=== PATIENT | male | born 1995 | race Caucasian/White ===

== ENCOUNTER 2018-04-01 11:58 | Emergency (ER) | payer SELFPAY ==
[~2018-04-01] VITALS: Ht 175.3 cm; Wt 81.8 kg
[2018-04-01] MEDS ORDERED: PERTUSS(ACELL),DIPH,TET VAC/PF 0.5 ML VIAL IM ONE (12:45)
[2018-04-01] MEDS ORDERED: IBUPROFEN 800 MG TABLET PO ONE (12:45)
[2018-04-01 14:35] VITALS: BP 123/65
== END 2018-04-01 15:09 | disposition home or self-care (01) ==
LOC: EMS 12:00
DX: S61.411A Laceration without foreign body of right hand, initial encounter (principal); V00.131A Fall from skateboard, initial encounter; Y93.51 Activity, roller skating (inline) and skateboarding; Y92.89 Other specified places as the place of occurrence of the external cause; Y99.8 Other external cause status
CPT/HCPCS: 90471; 90715; 99284

== ENCOUNTER 2018-04-03 11:04 | Emergency (ER) | payer MEDICAID ==
[~2018-04-03] VITALS: Ht 175.3 cm; Wt 81.8 kg
[2018-04-03] MEDS ORDERED: BACITRACIN 0.9 GM PACKET OINTMENT TP ONE (12:00)
[2018-04-03] MEDS ORDERED: LIDOCAINE HCL 1% 10 ML VIAL INJ ONE (12:00)
[2018-04-03] MEDS ORDERED: IBUPROFEN 800 MG TABLET PO ONE (12:00)
[2018-04-03] MEDS ORDERED: CEPHALEXIN MONOHYDRATE 500 MG CAPSULE PO ONE (12:00)
[2018-04-03 13:52] VITALS: BP 119/62
== END 2018-04-03 13:55 | disposition home or self-care (01) ==
LOC: EMS 11:19
DX: S61.411A Laceration without foreign body of right hand, initial encounter (principal); X58.XXXA Exposure to other specified factors, initial encounter; Y93.89 Activity, other specified; Y92.89 Other specified places as the place of occurrence of the external cause; Y99.8 Other external cause status
CPT/HCPCS: 12002; 99283; J3490